=== PATIENT | female | born 1995 | race American Indian/Alaskan Native ===

== ENCOUNTER 2018-05-21 21:44 | Emergency (ER) | payer OTHER ==
--- NOTE | 2018-05-21 22:13 | Emergency Department Report ---
Chief Complaint: Earache Stated Complaint: RT EAR PRESSURE Time Seen by Provider: 05/21/18 22:09 - HPI History of Present Illness: This is a 23 y.o. female that presents with right ear pain x 3 days. Patient also reports accidentally swallowing tongue ring in route to ER. - ROS Review of Systems: right ear pain - Exam Vital Signs: Vital Signs 05/21/18 22:09 Temperature 98.3 F Pulse Rate 107 H Respiratory 16 Rate Blood Pressure 98/62 O2 Sat by Pulse 97 Oximetry MSE screening note: Focused history and physical exam performed. Due to findings the following was ordered: ACC for further evaluation. ED Disposition for MSE Condition: Stable
[2018-05-22] MEDS ORDERED: BENADRYL PO ONE (00:09)
[2018-05-22] MEDS ORDERED: AUGMENTIN 875 MG PO ONE (00:09)
[2018-05-22] MEDS ORDERED: IBUPROFEN PO ONE (00:09)
--- NOTE | 2018-05-22 00:22 | Emergency Department Report ---
ED ENT HPI - General Chief complaint: Earache Stated complaint: RT EAR PRESSURE Time Seen by Provider: 05/21/18 22:09 Source: patient Mode of arrival: Ambulatory Limitations: No Limitations - History of Present Illness Initial comments: This is a 23 y.o. female that presents with right ear pain x 3 days. Patient also reports accidentally swallowing tongue ring in route to ER. MD complaint: ear pain Onset/Timin -: days(s) Location: R ear Severity: moderate Severity scale (0 -10): 5 Quality: aching Consistency: constant Improves with: none Associated Symptoms: tinnitus - Related Data Previous Rx's Medication Instructions Recorded Last Taken Type Amoxicillin/K Clav Tab [Augmentin 1 tab PO BID 10 Days #20 tab 05/22/18 Unknown Rx 875 mg] Carbamide Peroxide [Ear Wax 5 drops OT BID 5 Days #12 ml 05/22/18 Unknown Rx Removal] Ibuprofen 800 mg PO TID PRN #30 tablet 05/22/18 Unknown Rx Allergies Allergy/AdvReac Type Severity Reaction Status Date / Time No Known Allergies Allergy Unverified 05/21/18 22:06 ED Dental HPI - General Chief complaint: Earache Stated complaint: RT EAR PRESSURE Time Seen by Provider: 05/21/18 22:09 Source: patient Mode of arrival: Ambulatory Limitations: No Limitations - Related Data Previous Rx's Medication Instructions Recorded Last Taken Type Amoxicillin/K Clav Tab [Augmentin 1 tab PO BID 10 Days #20 tab 05/22/18 Unknown Rx 875 mg] Carbamide Peroxide [Ear Wax 5 drops OT BID 5 Days #12 ml 05/22/18 Unknown Rx Removal] Ibuprofen 800 mg PO TID PRN #30 tablet 05/22/18 Unknown Rx Allergies Allergy/AdvReac Type Severity Reaction Status Date / Time No Known Allergies Allergy Unverified 05/21/18 22:06 ED Review of Systems ROS: Stated complaint: RT EAR PRESSURE Other details as noted in HPI Constitutional: denies: chills, fever Eyes: denies: eye pain, eye discharge, vision change ENT: denies: ear pain, throat pain Respiratory: denies: cough, shortness of breath, wheezing Cardiovascular: denies: chest pain, palpitations Endocrine: no symptoms reported Gastrointestinal: denies: abdominal pain, nausea, diarrhea Genitourinary: denies: urgency, dysuria, discharge Musculoskeletal: as per HPI Skin: denies: rash, lesions Neurological: denies: headache, weakness, paresthesias Psychiatric: denies: anxiety, depression Hematological/Lymphatic: denies: easy bleeding, easy bruising ED Past Medical Hx - Past Medical History Hx Asthma: Yes - Surgical History Additional Surgical History: 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, head, and jaw - Social History Smoking Status: Never Smoker Substance Use Type: None - Medications Home Medications: Home Medications Medication Instructions Recorded Confirmed Last Taken Type Amoxicillin/K Clav Tab [Augmentin 1 tab PO BID 10 Days #20 tab 05/22/18 Unknown Rx 875 mg] Carbamide Peroxide [Ear Wax 5 drops OT BID 5 Days #12 ml 05/22/18 Unknown Rx Removal] Ibuprofen 800 mg PO TID PRN #30 tablet 05/22/18 Unknown Rx ED Physical Exam - General Limitations: No Limitations General appearance: alert, in no apparent distress - Head Head exam: Present: atraumatic, normocephalic - Eye Eye exam: Present: normal appearance, PERRL, EOMI Pupils: Present: normal accommodation - ENT ENT exam: Present: mucous membranes moist - Expanded ENT Exam Expanded TM/Canal exam: Erythema: Right TM, Left TM, Cerumen Impaction: Right TM, Canal Tenderness: Right TM, Left TM Mouth exam: Absent: trismus Throat exam: Positive: normal inspection, other (uvula midline no swelling no stridor ) - Neck Neck exam: Present: normal inspection, full ROM. Absent: tenderness, meningi smus, lymphadenopathy, thyromegaly - Respiratory Respiratory exam: Present: normal lung sounds bilaterally. Absent: respiratory distress, wheezes, stridor, chest wall tenderness - Cardiovascular Cardiovascular Exam: Present: regular rate, normal rhythm, normal heart sounds. Absent: systolic murmur, diastolic murmur, rubs, gallop - GI/Abdominal GI/Abdominal exam: Present: soft, normal bowel sounds - Rectal Rectal exam: Present: deferred - Extremities Exam Extremities exam: Present: normal inspection, full ROM - Back Exam Back exam: Present: normal inspection, full ROM - Neurological Exam Neurological exam: Present: alert, oriented X3, CN II-XII intact, normal gait - Psychiatric Psychiatric exam: Present: normal affect, normal mood - Skin Skin exam: Present: warm, dry, intact, normal color. Absent: rash ED Course Vital Signs 03/23/19 22:09 Temperature 98.3 F Pulse Rate 107 H Respiratory 16 Rate Blood Pressure 98/62 O2 Sat by Pulse 97 Oximetry ED Medical Decision Making - Medical Decision Making this is aom bilat, plan: augmentin ibuprofe, debrox for right ear follow up with ent ni 2-3 days return to ed if symptoms worsen. pt verbalized agreement and understanding of discharge plan. Critical care attestation.: If time is entered above; I have spent that time in minutes in the direct care of this critically ill patient, excluding procedure time. ED Disposition Clinical Impression: AOM (acute otitis media) Qualifiers: Otitis media type: serous Laterality: bilateral Recurrence: non-recurrent Qualified Code(s): H65.03 - Acute serous otitis media, bilateral Disposition: TO HOME OR SELFCARE Is pt being admited?: No Does the pt Need Aspirin: No Condition: Stable Instructions: Otitis Media (ED) Prescriptions: Amoxicillin/K Clav Tab [Augmentin 875 mg] 1 tab PO BID 10 Days #20 tab Carbamide Peroxide [Ear Wax Removal] 5 drops OT BID 5 Days #12 ml Ibuprofen 800 mg PO TID PRN #30 tablet PRN Reason: pain fever Referrals: [facility]LLY [facility] MD BILL [Primary Care Provider] - 3-5 Days Forms: Work/School Release Form(ED) Time of Disposition: 00:28
[2018-05-22 01:22] VITALS: BP 102/60
== END 2018-05-22 01:26 | disposition home or self-care (01) ==
LOC: ED 21:44
DX: H65.03 Acute serous otitis media, bilateral (principal); J45.909 Unspecified asthma, uncomplicated
CPT/HCPCS: 99282

== ENCOUNTER 2018-05-27 21:38 | Emergency (ER) | payer SELFPAY ==
[2018-05-27 23:49] LABS: Bilirubin,Urine NEG (Negative); Blood,Urine NEG (Negative); Color,Urine Yellow (Yellow); Protein,Urine <15 mg/dL mg/dL (Negative); Urobilinogen,Urine < 2.0 mg/dL (<2.0)
[2018-05-27 23:50] LABS: HCG Qualitative,Urine Negative (Negative)
--- NOTE | 2018-05-28 01:37 | Emergency Department Report ---
<MOI GARRISON - Last Filed: 05/28/18 01:33> ED General Adult HPI - General Chief complaint: Earache Stated complaint: R EAR PAIN/ABD PAIN Source: patient Mode of arrival: Ambulatory Limitations: No Limitations - History of Present Illness Initial comments: 23 0 female presents to the emergency room for right ear pain going on for 1 week. Patient also reports sharp constant upper quadrant abdominal pain times one day. Patient reports that the pain is worse after eating better with lying in a position. She denies any nausea vomiting no fever no chills. Patient complains of right ear pain and aches constant she was placed on Augmentin and ibuprofen in ear wax removal on 05/22/2018. Patient reports she has not taken any medications today. Patient reports that the ibuprofen has helped with her ear but does not help with her stomach pains. Patient reports her last menstrual period was 05/07/2018. -: days(s) (1) Location: abdomen Severity scale (0 -10): 7 Quality: sharp Consistency: constant Improves with: rest ( position) Worsens with: eating Associated Symptoms: denies other symptoms Treatments Prior to Arrival: none - Related Data Previous Rx's Medication Instructions Recorded Last Taken Type Amoxicillin/K Clav Tab [Augmentin 1 tab PO BID 10 Days #20 tab 05/22/18 Unknown Rx 875 mg] Carbamide Peroxide [Ear Wax 5 drops OT BID 5 Days #12 ml 05/22/18 Unknown Rx Removal] Ibuprofen 800 mg PO TID PRN #30 tablet 05/22/18 Unknown Rx Omeprazole 40 mg PO DAILY #30 capsule. 05/28/18 Unknown Rx Allergies Allergy/AdvReac Type Severity Reaction Status Date / Time No Known Allergies Allergy Unverified 05/21/18 22:06 ED Review of Systems ENT: ear pain (right) Gastrointestinal: abdominal pain. 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 05/28/18 Unknown Rx ED Physical Exam - General Limitations: No Limitations General appearance: alert, in no apparent distress - Head Head exam: Present: atraumatic, normocephalic - Eye Eye exam: Present: EOMI - Expanded ENT Exam Expanded TM/Canal exam: Cerumen Impaction: Right TM - Neck Neck exam: Present: normal inspection - Cardiovascular Cardiovascular Exam: Present: tachycardia - GI/Abdominal GI/Abdominal exam: Present: soft, normal bowel sounds. Absent: distended, tenderness, guarding - Extremities Exam Extremities exam: Present: normal inspection - Back Exam Back exam: Present: normal inspection - Neurological Exam Neurological exam: Present: alert, oriented X3 - Psychiatric Psychiatric exam: Present: normal affect, normal mood - Skin Skin exam: Present: warm, dry, intact, normal color. Absent: rash ED Medical Decision Making - Medical Decision Making Patient has been evaluated by this provider fast track. CBC CMP abdominal CT with contrast has been ordered. Urinalysis and urine test completed which shows negativity. ED Disposition Clinical Impression: Otalgia of both ears Disposition: DC-01 TO HOME OR SELFCARE Condition: Stable Instructions: Earache (ED), Abdominal Pain (ED) Prescriptions: Omeprazole 40 mg PO DAILY #30 capsule. Referrals: FABIOLA GARCIA MD [Primary Care Provider] - 3-5 Days Forms: Work/School Release Form(ED) <MANUEL VIDES - Last Filed: 05/28/18 03:24> ED General Adult HPI - History of Present Illness Initial comments: omerprazole 40 mg po daily ED Review of Systems ROS: Stated complaint: R EAR PAIN/ABD PAIN Other details as noted in HPI ED Course Vital Signs 05/27/18 05/28/18 23:06 02:33 Temperature 98 F 98.2 F Pulse Rate 100 H 86 Respiratory 16 Rate Blood Pressure 102/62 Blood Pressure 98/54 [Right] O2 Sat by Pulse 97 99 Oximetry ED Medical Decision Making - Lab Data Result diagrams: 05/28/18 01:54 05/28/18 02:00 - Radiology Data Radiology results: report reviewed, image reviewed PROCEDURE: CT ABDOMEN PELVIS W CON TECHNIQUE: Computerized axial tomography of the abdomen and pelvis was performed after the IV injection of iodinated nonionic contrast. CT DOSE LENGTH PRODUCT: 560.5 mGycm HISTORY: abd pain upper Quadrant that radiates to back COMPARISONS: None . FINDINGS: Visualized lower thorax: No significant abnormality. Liver: Normal size and attenuation. Spleen: Normal size and attenuation. Gallbladder and biliary system: Normal. Pancreas: Normal. Adrenals: Normal. Kidneys: Normal. GI tract: Normal . Lymph nodes and mesentery: Normal. Vasculature: Normal.. Bladder: Normal. Reproductive organs: Normal. Peritoneum: No free fluid. Musculoskeletal structures: No significant abnormality. Other: None . IMPRESSION: Normal examination of the abdomen and pelvis . This document is electronically signed by Christine Rizzo DO., May 28 2018 02:59:47 AM ET Transcribed By: [facility] Dictated By: CHRISTINE RIZZO MD Electronically Authenticated By: CHRISTINE RIZZO MD Signed Date/Time: 05/28/18300 DD/ 9 TD/TT: 05/28/18249 - Medical Decision Making CT abdomen and pelvis are normal patient is asked to take Augmentin and ibuprofen at this as prescribed for pain and follow up with ENT as directed with Dr. Steward patient verbalizes agreement and understanding of discharge plan patient DC the home in stable condition at this time Critical care attestation.: If time is entered above; I have spent that time in minutes in the direct care of this critically ill patient, excluding procedure time. ED Disposition Is pt being admited?: No Does the pt Need Aspirin: No Time of Disposition: 03:21
[2018-05-28 02:24] LABS: Basophils % (Auto) 0.5 % (0.0-1.8); Eosinophils % (Auto) 0.5 % (0.0-4.3); Hematocrit 36.1 % (30.3-42.9); Hemoglobin 12.5 gm/dl (10.1-14.3); Lymphocytes # (Auto) 2.7 K/mm3 (1.2-5.4); Lymphocytes % (Auto) 45.8 % (13.4-35.0); Mean Corpuscular HGB Conc 35 % (30-34); Mean Corpuscular Hemoglobin 33 pg (28-32); Mean Corpuscular Volume 96 fl (79-97); Monocytes # (Auto) 0.6 K/mm3 (0.0-0.8); Monocytes % (Auto) 9.6 % (0.0-7.3); Platelet Count 173 K/mm3 (140-440); Red Blood Count 3.77 M/mm3 (3.65-5.03); Red Cell Distribution Width 14.6 % (13.2-15.2)
[2018-05-28 02:35] VITALS: BP 98/54
[2018-05-28 02:44] LABS: Alanine Aminotransferase 6 units/L (7-56); BUN/Creatinine Ratio 32; Blood Urea Nitrogen 19 mg/dL (7-17); Calcium 8.8 mg/dL (8.4-10.2); Hemolysis Index 4
--- NOTE | 2018-05-28 03:01 | Cat Scan Report ---
PROCEDURE: CT ABDOMEN PELVIS W CON TECHNIQUE: Computerized axial tomography of the abdomen and pelvis was performed after the IV inject ion of iodinated nonionic contrast. CT DOSE LENGTH PRODUCT: 560.5 mGycm HISTORY: abd pain upper Quadrant that radiates to back COMPARISONS: None . FINDINGS: Visualized lower thorax: No significant abnormality. Liver: Normal size and attenuation. Spleen: Normal size and attenuation. Gallbladder and biliary system: Normal. Pancreas: Normal. Adrenals: Normal. Kidneys: Normal. GI tract: Normal . Lymph nodes and mesentery: Normal. Vasculature: Normal.. Bladder: Normal. Reproductive organs: Normal. Peritoneum: No free fluid. Musculoskeletal structures: No significant abnormality. Other: None . IMPRESSION: Normal examination of the abdomen and pelvis . This document is electronically signed by Christine Rizzo DO., May 28 2018 02:59:47 AM ET
== END 2018-05-28 03:30 | disposition home or self-care (01) ==
LOC: ED 21:38
DX: H92.03 Otalgia, bilateral (principal); R10.9 Unspecified abdominal pain
CPT/HCPCS: 36415; 74177; 80053; 81001; 81025; 85025; 99284; Q9967

== ENCOUNTER 2018-08-14 00:54 | Emergency (ER) | payer SELFPAY ==
[2018-08-14] MEDS ORDERED: TORADOL IM ONE (06:42)
[2018-08-14] MEDS ORDERED: IBUPROFEN PO ONE ×2 (06:51→06:52)
--- NOTE | 2018-08-14 07:58 | Emergency Department Report ---
ED General Adult HPI - General Chief complaint: Headache Stated complaint: SEVERE HEADACHE Time Seen by Provider: 08/14/18 06:33 Source: patient Mode of arrival: Ambulatory Limitations: No Limitations - History of Present Illness Initial comments: 23-year-old female has a generalized headache which has been intermittent for more then a week. 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 She states that she has had many of these soft tissue tumors removed from other parts of her body. She has no diagnosis that she is aware of. She does not have a history of neurofibromatosis. She is not on any current medications. The history of her headache is never severe. She's had no neck stiffness no nausea no vomiting no focal neurological change, some photosensitivity but no photophobia. She refuses IM medicine now and just wants to take a pill. She has not been taking much [id number] for these headaches. She has no difficulty with her speech gait or mentation. -: week(s) Location: head Radiation: non-radiation Quality: dull Consistency: intermittent Improves with: none Worsens with: none Associated Symptoms: denies other symptoms Treatments Prior to Arrival: none - Related Data Previous Rx's Medication Instructions Recorded Last Taken Type Amoxicillin/K Clav Tab [Augmentin 1 tab PO BID 10 Days #20 tab 05/22/18 Unknown Rx 875 mg] Carbamide Peroxide [Ear Wax 5 drops OT BID 5 Days #12 ml 05/22/18 Unknown Rx Removal] Ibuprofen [Ibuprofen 800] 800 mg PO TID PRN #30 tablet 05/22/18 Unknown Rx Omeprazole 40 mg PO DAILY #30 capsule. 05/28/18 Unknown Rx Butalb/Acetaminophen/Caffeine 1 cap PO Q6HR PRN #10 cap 08/14/18 Unknown Rx [Fioricet 50-300-40 mg CAP] Allergies Allergy/AdvReac Type Severity Reaction Status Date / Time No Known Allergies Allergy Unverified 05/21/18 22:06 ED Review of Systems ROS: Stated complaint: SEVERE HEADACHE Other details as noted in HPI Constitutional: denies: chills, fever Eyes: denies: eye pain, eye discharge, vision change ENT: denies: ear pain, throat pain Respiratory: denies: cough, shortness of breath, wheezing Cardiovascular: denies: chest pain, palpitations Endocrine: no symptoms reported Gastrointestinal: denies: abdominal pain, nausea, diarrhea Genitourinary: denies: urgency, dysuria, discharge Musculoskeletal: denies: back pain, joint swelling, arthralgia Skin: denies: rash, lesions Neurological: denies: headache, weakness, paresthesias Psychiatric: denies: anxiety, depression Hematological/Lymphatic: denies: easy bleeding, easy bruising ED Past Medical Hx - Past Medical History Previous Medical History?: Yes Hx Asthma: Yes Additional medical history: Lipoma - Surgical History Past Surgical History?: Yes Additional Surgical History: 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, head, and jaw - Social History Smoking Status: Former Smoker Substance Use Type: None - Medications Home Medications: Home Medications Medication Instructions Recorded Confirmed Last Taken Type Amoxicillin/K Clav Tab [Augmentin 1 tab PO BID 10 Days #20 tab 05/22/18 Unknown Rx 875 mg] Carbamide Peroxide [Ear Wax 5 drops OT BID 5 Days #12 ml 05/22/18 Unknown Rx Removal] Ibuprofen [Ibuprofen 800] 800 mg PO TID PRN #30 tablet 05/22/18 Unknown Rx Omeprazole 40 mg PO DAILY #30 capsule.dr 05/28/18 Unknown Rx Butalb/Acetaminophen/Caffeine 1 cap PO Q6HR PRN #10 cap 08/14/18 Unknown Rx [Fioricet 50-300-40 mg CAP] ED Physical Exam - General Limitations: No Limitations General appearance: alert, in no apparent distress - Head Head exam: Present: atraumatic, normocephalic, other (soft tissue mass consistent with lipoma occiput) - Eye Eye exam: Present: normal appearance. Absent: scleral icterus - ENT ENT exam: Present: mucous membranes moist - Neck Neck exam: Present: normal inspection. Absent: tenderness, meningismus - Respiratory Respiratory exam: Present: normal lung sounds bilaterally. Absent: respiratory distress - Cardiovascular Cardiovascular Exam: Present: regular rate, normal rhythm. Absent: systolic murmur, diastolic murmur, rubs, gallop - GI/Abdominal GI/Abdominal exam: Present: soft, normal bowel sounds. Absent: distended, tenderness - Extremities Exam Extremities exam: Present: normal inspection - Back Exam Back exam: Present: normal inspection - Neurological Exam Neurological exam: Present: alert, oriented X3, CN II-XII intact, normal gait. Absent: motor sensory deficit - Psychiatric Psychiatric exam: Present: normal affect, normal mood - Skin Skin exam: Present: warm, dry, intact, normal color. Absent: rash ED Course Vital Signs 08/14/18 08/14/18 08/14/18 01:19 06:09 06:47 Temperature 98.2 F 98 F Pulse Rate 84 71 Respiratory 18 14 16 Rate Blood Pressure 103/70 Blood Pressure 116/52 [Left] O2 Sat by Pulse 99 100 Oximetry 08/14/18 08/14/18 08/14/18 06:51 07:00 07:30 Temperature Pulse Rate 64 56 L Respiratory 16 12 16 Rate Blood Pressure 110/69 116/52 Blood Pressure [Left] O2 Sat by Pulse 100 100 Oximetry ED Medical Decision Making - Radiology Data Radiology results: report reviewed (extracranial mass) Critical care attestation.: If time is entered above; I have spent that time in minutes in the direct care of this critically ill patient, excluding procedure time. ED Disposition Clinical Impression: Scalp mass Cephalalgia Qualifiers: Headache type: unspecified Headache chronicity pattern: acute headache Intractability: not intractable Qualified Code(s): R51 - Headache Disposition: DC-01 TO HOME OR SELFCARE Is pt being admited?: No Does the pt Need Aspirin: No Condition: Stable Instructions: Acute Headache (ED), Lipoma (ED) Additional Instructions: Follow up with PCP. Prescriptions: Butalb/Acetaminophen/Caffeine [Fioricet 50-300-40 mg CAP] 1 cap PO Q6HR PRN #10 cap PRN Reason: headache Referrals: PRIMARY CARE, [Primary Care Provider] - 3-5 Days [facility] [Provider Group] - 3-5 Days Time of Disposition: 09:06
--- NOTE | 2018-08-14 08:04 | Cat Scan Report ---
PROCEDURE: CT HEAD/BRAIN WO CON TECHNIQUE: Computerized tomography of the head was performed without contrast material. CT DOSE LENGTH PRODUCT: 1035.5 mGycm HISTORY: headache COMPARISONS: None . FINDINGS: The ventricles, cisterns and sulci are within normal limits. No intra parenchymal or extra-axial mas s, hemorrhage, or mass effect. Perry and white-matter differentiation is within normal limits. Normal spherical shape of the globes. Paranasal sinuses and mastoid air cells are clear. A round sof t tissue mass protrudes posteriorly from the left scalp vertex and measures approximately 3.8 x 3.4 c m on axial series 2, image 56. No skull or facial fracture visualized. IMPRESSION: No acute intracranial abnormality. Round soft tissue mass within the posterior superior scalp measures 3.8 x 3.4 cm. No findings of unde rlying skull destruction. Clinical correlation for chronicity is requested. Consider follow-up surgic al consultation is warranted. This document is electronically signed by Guanakito Ruvalcaba MD., August 14 2018 08:03:12 AM ET
[2018-08-14 09:26] VITALS: BP 134/75
== END 2018-08-14 09:25 | disposition home or self-care (01) ==
LOC: ED 00:54
DX: D17.0 Benign lipomatous neoplasm of skin and subcutaneous tissue of head, face and neck (principal); R51 Headache; J45.909 Unspecified asthma, uncomplicated; Z79.899 Other long term (current) drug therapy; Z98.890 Other specified postprocedural states; Z87.891 Personal history of nicotine dependence
CPT/HCPCS: 70450; 99283; J1885

== ENCOUNTER 2018-09-20 04:07 | Emergency (ER) | payer MEDICAID, OTHER ==
[2018-09-20] MEDS ORDERED: IBUPROFEN PO ONE (06:25)
[2018-09-20] MEDS ORDERED: DELTASONE PO ONE (06:25)
[2018-09-20] MEDS ORDERED: AUGMENTIN 875 MG PO ONE (06:25)
--- NOTE | 2018-09-20 06:49 | XRay Report ---
CHEST 1 VIEW 09/20/2018 4:42 AM INDICATION / CLINICAL INFORMATION: Chest Pain. COMPARISON: None available. FINDINGS: SUPPORT DEVICES: None. HEART / MEDIASTINUM: No significant abnormality. LUNGS / PLEURA: No significant pulmonary or pleural abnormality. No pneumothorax. ADDITIONAL FINDINGS: No significant additional findings. IMPRESSION: No acute findings. Signer Name: Jin Mcintyre MD Signed: 09/20/2018 6:44 AM Workstation Name: [id number]
--- NOTE | 2018-09-20 06:55 | Emergency Department Report ---
ED General Adult HPI - General Chief complaint: Chest Pain Stated complaint: SORE THROAT CHEST TIGHTNESS BAYRON VOMITING Source: patient Mode of arrival: Ambulatory Limitations: No Limitations - History of Present Illness Initial comments: pt is a 23 y/o aaf who presents for sore throat cough and chest wall pain x 2 days states noc fever no tmax recorded or noted by patient no fever in triage today pt pt states mild pain with swallowig there is no wheezing no sob no stridor no resp distress. Onset/Timin -: days(s) Location: chest Radiation: non-radiation Severity scale (0 -10): 4 Quality: burning Consistency: constant Improves with: none Worsens with: eating Associated Symptoms: confusion, chest pain (chest wall soreness ), cough, fever/chills. denies: headaches, loss of appetite, nausea/vomiting, rash, seizure, shortness of breath, syncope, weakness Treatments Prior to Arrival: none - Related Data Previous Rx's Medication Instructions Recorded Last Taken Type Amoxicillin/K Clav Tab [Augmentin 1 tab PO BID 10 Days #20 tab 05/22/18 Unknown Rx 875 mg] Carbamide Peroxide [Ear Wax 5 drops OT BID 5 Days #12 ml 05/22/18 Unknown Rx Removal] Ibuprofen [Ibuprofen 800] 800 mg PO TID PRN #30 tablet 05/22/18 Unknown Rx Omeprazole 40 mg PO DAILY #30 capsule. 05/28/18 Unknown Rx Butalb/Acetaminophen/Caffeine 1 cap PO Q6HR PRN #10 cap 08/14/18 Unknown Rx [Fioricet 50-300-40 mg CAP] Amoxicillin/Potassium Clav 1 each PO BID 10 Days #20 tablet 09/20/18 Unknown Rx [Augmentin 875-125 Tablet] Benzocaine/Mentho [Cepacol X 1 each MM Q2H PRN #3 packet 09/20/18 Unknown Rx Strength] Ibuprofen [Motrin 800 MG tab] 800 mg PO Q8HR PRN #30 tablet 09/20/18 Unknown Rx predniSONE [Deltasone] 40 mg PO QDAY 5 Days #10 tab 09/20/18 Unknown Rx Allergies Allergy/AdvReac Type Severity Reaction Status Date / Time No Known Allergies Allergy Verified 09/20/18 04:26 ED Review of Systems ROS: Stated complaint: SORE THROAT CHEST TIGHTNESS BAYRON VOMITING Other details as noted in HPI Constitutional: denies: chills, fever Eyes: denies: eye pain, eye discharge, vision change ENT: throat pain, congestion, other (sinus pain ). denies: ear pain, dental pain, hearing loss, epistaxis Respiratory: no symptoms reported, cough. denies: shortness of breath, wheezing Cardiovascular: denies: chest pain, palpitations Endocrine: no symptoms reported Gastrointestinal: hematochezia. denies: abdominal pain, nausea, diarrhea Genitourinary: denies: urgency, dysuria, frequency, hematuria, discharge, abnormal menses, dyspareunia Musculoskeletal: myalgia. denies: back pain, joint swelling, arthralgia Skin: denies: rash, lesions Neurological: denies: headache, weakness, paresthesias Psychiatric: denies: anxiety, depression Hematological/Lymphatic: denies: easy bleeding, easy bruising ED Past Medical Hx - Past Medical History Previous Medical History?: Yes Hx Asthma: Yes Additional medical history: Lipoma - Surgical History Past Surgical History?: Yes Additional Surgical History: 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, head, and jaw - Social History Smoking Status: Never Smoker Substance Use Type: None, Marijuana - Medications Home Medications: Home Medications Medication Instructions Recorded Confirmed Last Taken Type Amoxicillin/K Clav Tab [Augmentin 1 tab PO BID 10 Days #20 tab 05/22/18 Unknown Rx 875 mg] Carbamide Peroxide [Ear Wax 5 drops OT BID 5 Days #12 ml 05/22/18 Unknown Rx Removal] Ibuprofen [Ibuprofen 800] 800 mg PO TID PRN #30 tablet 05/22/18 Unknown Rx Omeprazole 40 mg PO DAILY #30 capsule. 05/28/18 Unknown Rx Butalb/Acetaminophen/Caffeine 1 cap PO Q6HR PRN #10 cap 08/14/18 Unknown Rx [Fioricet 50-300-40 mg CAP] Amoxicillin/Potassium Clav 1 each PO BID 10 Days #20 tablet 09/20/18 Unknown Rx [Augmentin 875-125 Tablet] Benzocaine/Mentho [Cepacol X 1 each MM Q2H PRN #3 packet 09/20/18 Unknown Rx Strength] Ibuprofen [Motrin 800 MG tab] 800 mg PO Q8HR PRN #30 tablet 09/20/18 Unknown Rx predniSONE [Deltasone] 40 mg PO QDAY 5 Days #10 tab 09/20/18 Unknown Rx ED Physical Exam - General Limitations: No Limitations General appearance: alert, in no apparent distress - Head Head exam: Present: atraumatic, normocephalic - Eye Eye exam: Present: normal appearance, PERRL, EOMI Pupils: Absent: normal accommodation, irregular - ENT ENT exam: Present: mucous membranes moist, TM's normal bilaterally, normal external ear exam - Expanded ENT Exam Expanded Ear exam: Present: normal external inspection Mouth exam: Present: tongue normal Teeth exam: Present: normal inspection Throat exam: Positive: tonsillar erythema, tonsillomegaly, tonsillar exudate, other (uvula midline no stridor moderate lesions mild exudate no stridor ). Negative: R peritonsillar mass, L peritonsillar mass - Neck Neck exam: Present: normal inspection, tenderness, full ROM, lymphadenopathy. Absent: meningismus, thyromegaly - Expanded Neck Exam Expanded Neck exam: Present: tenderness (mild tenderness with swallowing ). Absent: midline deformity, anterior neck swelling, thyroid mass, carotid bruit, tracheal deviation - Respiratory Respiratory exam: Present: normal lung sounds bilaterally. Absent: respiratory distress, wheezes, rhonchi, stridor, chest wall tenderness - Cardiovascular Cardiovascular Exam: Present: regular rate, normal rhythm, normal heart sounds. Absent: systolic murmur, diastolic murmur, rubs, gallop - GI/Abdominal GI/Abdominal exam: Present: soft, normal bowel sounds, pulsatile mass. Absent: distended, tenderness, guarding, rebound, rigid - Rectal Rectal exam: Present: deferred - External exam: Present: erythema Speculum exam: Present: normal speculum exam Bi-manual exam: Present: normal bi-manual exam - Extremities Exam Extremities exam: Present: normal inspection, full ROM, tenderness. Absent: normal capillary refill, calf tenderness - Back Exam Back exam: Present: normal inspection, full ROM, paraspinal tenderness, rash noted. Absent: tenderness, CVA tenderness (R), CVA tenderness (L), muscle spasm, vertebral tenderness - Neurological Exam Neurological exam: Present: alert, altered, oriented X3, CN II-XII intact, normal gait, abnormal gait, reflexes normal - Psychiatric Psychiatric exam: Present: normal affect, normal mood, depressed, anxious - Skin Skin exam: Present: warm, dry, intact, normal color. Absent: rash ED Course Vital Signs 09/20/18 04:21 Temperature 98.1 F Pulse Rate 91 H Respiratory 18 Rate Blood Pressure 123/71 O2 Sat by Pulse 100 Oximetry ED Medical Decision Making - EKG Data EKG shows normal: sinus rhythm, axis, intervals, QRS complexes, ST-T waves Rate: normal - EKG Data When compared to previous EKG there are: previous EKG unavailable Interpretation: normal EKG (ekg interp by ed attending: NSR no ST Elevated SD ) - Radiology Data Radiology results: report reviewed, image reviewed no infiltrate no opacities , plan tx for pharyngitis, with rx for cepachol, ibuprofen prednisone, and augmentin - Medical Decision Making plan tx for pharyngitis ibuprophen, prednisone, augmentin, cepachol pt will follow up with pcp in 2-3 days pt will be dc'd to home in stable condition in 2- 3 days pt verbalized agreement and understanding of discharge plan. Critical care attestation.: If time is entered above; I have spent that time in minutes in the direct care of this critically ill patient, excluding procedure time. ED Disposition Clinical Impression: Pharyngitis Qualifiers: Pharyngitis/tonsillitis etiology: unspecified etiology Qualified Code(s): J02.9 - Acute pharyngitis, unspecified Disposition: DC-01 TO HOME OR SELFCARE Is pt being admited?: No Does the pt Need Aspirin: No Condition: Stable Instructions: Pharyngitis (ED) Prescriptions: Amoxicillin/Potassium Clav [Augmentin 875-125 Tablet] 1 each PO BID 10 Days #20 tablet Benzocaine/Mentho [Cepacol X Strength] 1 each MM Q2H PRN #3 packet PRN Reason: throat pain predniSONE [Deltasone] 40 mg PO QDAY 5 Days #10 tab Ibuprofen [Motrin 800 MG tab] 800 mg PO Q8HR PRN #30 tablet PRN Reason: pain Referrals: MARCELA TILLMAN MD [Primary Care Provider] - 3-5 Days Forms: Work/School Release Form(ED) Time of Disposition: 07:10
[2018-09-20 07:29] VITALS: BP 121/74
== END 2018-09-20 07:28 | disposition home or self-care (01) ==
LOC: ED 04:07
DX: J02.9 Acute pharyngitis, unspecified (principal); R41.0 Disorientation, unspecified; J45.909 Unspecified asthma, uncomplicated; F12.10 Cannabis abuse, uncomplicated; Z79.899 Other long term (current) drug therapy
CPT/HCPCS: 71045; 93005; 93010; 99284; J7512

== ENCOUNTER 2019-04-27 06:14 | Emergency (ER) | payer SELFPAY ==
[2019-04-27 06:25] VITALS: BP 116/75
[2019-04-27 06:50] LABS: Bacteria,Urine 1+ /HPF (Negative); Bilirubin,Urine NEG (Negative); Blood,Urine NEG (Negative); Color,Urine Yellow (Yellow); Mucus,Urine FEW /HPF; Protein,Urine <15 mg/dL mg/dL (Negative); Urobilinogen,Urine < 2.0 mg/dL (<2.0)
[2019-04-27 06:53] LABS: Basophils % (Auto) 0.6 % (0.0-1.8); Eosinophils % (Auto) 0.6 % (0.0-4.3); Hematocrit 38.9 % (30.3-42.9); Hemoglobin 13.1 gm/dl (10.1-14.3); Lymphocytes # (Auto) 2.1 K/mm3 (1.2-5.4); Lymphocytes % (Auto) 41.2 % (13.4-35.0); Mean Corpuscular HGB Conc 34 % (30-34); Mean Corpuscular Volume 96 fl (79-97); Monocytes # (Auto) 0.4 K/mm3 (0.0-0.8); Monocytes % (Auto) 7.2 % (0.0-7.3); Platelet Count 208 K/mm3 (140-440); Red Blood Count 4.07 M/mm3 (3.65-5.03)
[2019-04-27 07:10] LABS: Alanine Aminotransferase 8 units/L (7-56); Albumin 4.4 g/dL (3.9-5); BUN/Creatinine Ratio 16; Blood Urea Nitrogen 11 mg/dL (7-17); Calcium 9.2 mg/dL (8.4-10.2); Hemolysis Index 2
--- NOTE | 2019-04-27 07:42 | Emergency Department Report ---
ED Abdominal Pain HPI - General Chief Complaint: Abdominal Pain Stated Complaint: SEVERE STOMACH PAIN Time Seen by Provider: 04/27/19 07:41 Source: patient Mode of arrival: Ambulatory Limitations: No Limitations - History of Present Illness Initial Comments: Patient is a 24-year-old -[place] female who comes to the emergency room complaining of abdominal pain. It is diffuse abdominal pain. Her last menstrual cycle was 3 days ago. Patient has no vaginal bleeding or discharge. She has no burning with urination. No back pain. No nausea vomiting or diarrhea. Last BM was normal yesterday. Patient was screened in triage by the nurses blood and urine was sent. They were all normal. This was discussed on initial exam with patient. On initial exam patient denies any pain. MD Complaint: abdominal pain -: Gradual Location: diffuse Migration to: no migration Severity: mild Consistency: intermittent Improves With: nothing Worsens With: nothing - Related Data LMP (females 10-50): other (3 d) Previous Rx's Medication Instructions Recorded Last Taken Type Amoxicillin/K Clav Tab [Augmentin 1 tab PO BID 10 Days #20 tab 05/22/18 Unknown Rx 875 mg] Carbamide Peroxide [Ear Wax 5 drops OT BID 5 Days #12 ml 05/22/18 Unknown Rx Removal] Ibuprofen [Ibuprofen 800] 800 mg PO TID PRN #30 tablet 05/22/18 Unknown Rx Omeprazole 40 mg PO DAILY #30 capsule. 05/28/18 Unknown Rx Butalb/Acetaminophen/Caffeine 1 cap PO Q6HR PRN #10 cap 08/14/18 Unknown Rx [Fioricet 50-300-40 mg CAP] Amoxicillin/Potassium Clav 1 each PO BID 10 Days #20 tablet 09/20/18 Unknown Rx [Augmentin 875-125 Tablet] Benzocaine/Mentho [Cepacol X 1 each MM Q2H PRN #3 packet 09/20/18 Unknown Rx Strength] Ibuprofen [Motrin 800 MG tab] 800 mg PO Q8HR PRN #30 tablet 09/20/18 Unknown Rx predniSONE [Deltasone] 40 mg PO QDAY 5 Days #10 tab 09/20/18 Unknown Rx Allergies Allergy/AdvReac Type Severity Reaction Status Date / Time No Known Allergies Allergy Verified 09/20/18 04:26 ED Review of Systems ROS: Stated complaint: SEVERE STOMACH PAIN Other details as noted in HPI Comment: All other systems reviewed and negative ED Past Medical Hx - Past Medical History Previous Medical History?: Yes Hx Asthma: Yes Additional medical history: Lipoma - Surgical History Past Surgical History?: Yes Additional Surgical History: 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, head, and jaw - Family History Family history: no significant - Social History Smoking Status: Former Smoker Substance Use Type: Marijuana - Medications Home Medications: Home Medications Medication Instructions Recorded Confirmed Last Taken Type Amoxicillin/K Clav Tab [Augmentin 1 tab PO BID 10 Days #20 tab 05/22/18 Unknown Rx 875 mg] Carbamide Peroxide [Ear Wax 5 drops OT BID 5 Days #12 ml 05/22/18 Unknown Rx Removal] Ibuprofen [Ibuprofen 800] 800 mg PO TID PRN #30 tablet 05/22/18 Unknown Rx Omeprazole 40 mg PO DAILY #30 capsule. 05/28/18 Unknown Rx Butalb/Acetaminophen/Caffeine 1 cap PO Q6HR PRN #10 cap 08/14/18 Unknown Rx [Fioricet 50-300-40 mg CAP] Amoxicillin/Potassium Clav 1 each PO BID 10 Days #20 tablet 09/20/18 Unknown Rx [Augmentin 875-125 Tablet] Benzocaine/Mentho [Cepacol X 1 each MM Q2H PRN #3 packet 09/20/18 Unknown Rx Strength] Ibuprofen [Motrin 800 MG tab] 800 mg PO Q8HR PRN #30 tablet 09/20/18 Unknown Rx predniSONE [Deltasone] 40 mg PO QDAY 5 Days #10 tab 09/20/18 Unknown Rx ED Physical Exam - General Limitations: No Limitations General appearance: alert, in no apparent distress - Head Head exam: Present: atraumatic, normocephalic - Eye Eye exam: Present: normal appearance - ENT ENT exam: Present: mucous membranes moist - Neck Neck exam: Present: normal inspection - Respiratory Respiratory exam: Present: normal lung sounds bilaterally. Absent: respiratory distress - Cardiovascular Cardiovascular Exam: Present: regular rate, normal rhythm. Absent: systolic murmur, diastolic murmur, rubs, gallop - GI/Abdominal GI/Abdominal exam: Present: soft, normal bowel sounds - Extremities Exam Extremities exam: Present: normal inspection - Back Exam Back exam: Present: normal inspection - Neurological Exam Neurological exam: Present: alert, oriented X3 - Psychiatric Psychiatric exam: Present: normal affect, normal mood - Skin Skin exam: Present: warm, dry, intact, normal color. Absent: rash ED Course Vital Signs 04/27/19 06:21 Temperature 98.3 F Pulse Rate 85 Respiratory 18 Rate Blood Pressure 116/75 O2 Sat by Pulse 100 Oximetry ED Medical Decision Making - Lab Data Result diagrams: 04/27/19 06:35 04/27/19 06:35 - Medical Decision Making Lab Results 04/27/19 04/27/19 04/27/19 Range/Units 06:34 06:35 06:35 WBC 5.2 (4.5-11.0) K/mm3 RBC 4.07 (3.65-5.03) M/mm3 Hgb 13.1 (10.1-14.3) gm/dl Hct 38.9 (30.3-42.9) % MCV 96 (79-97) fl MCH 32 (28-32) pg MCHC 34 (30-34) % RDW 14.0 (13.2-15.2) % Plt Count 208 (140-440) K/mm3 Lymph % (Auto) 41.2 H (13.4-35.0) % [place] % (Auto) 7.2 (0.0-7.3) % Eos % (Auto) 0.6 (0.0-4.3) % Baso % (Auto) 0.6 (0.0-1.8) % Lymph # 2.1 (1.2-5.4) K/mm3 [place] # 0.4 (0.0-0.8) K/mm3 Eos # 0.0 (0.0-0.4) K/mm3 Baso # 0.0 (0.0-0.1) K/mm3 Seg Neutrophils % 50.4 (40.0-70.0) % Seg Neutrophils # 2.6 (1.8-7.7) K/mm3 Sodium 143 (137-145) mmol/L Potassium 3.6 (3.6-5.0) mmol/L Chloride 105.2 (98-107) mmol/L Carbon Dioxide 27 (22-30) mmol/L Anion Gap 14 mmol/L BUN 11 (7-17) mg/dL Creatinine 0.7 (0.7-1.2) mg/dL Estimated GFR > 60 ml/min BUN/Creatinine Ratio 16 % Glucose 107 H (65-100) mg/dL Calcium 9.2 (8.4-10.2) mg/dL Total Bilirubin < 0.20 (0.1-1.2) mg/dL AST 12 (5-40) units/L ALT 8 (7-56) units/L Alkaline Phosphatase 70 (35-129) units/L Total Protein 6.5 (6.3-8.2) g/dL Albumin 4.4 (3.9-5) g/dL Albumin/Globulin Ratio 2.1 % HCG, Qual (Negative) Urine Color Yellow (Yellow) Urine Turbidity Clear (Clear) Urine pH 7.0 (5.0-7.0) Ur Specific [place] 1.019 (1.003-1.030) Urine Protein <15 mg/dl (Negative) mg/dL Urine Glucose (UA) Neg (Negative) mg/dL Urine Ketones Neg (Negative) mg/dL Urine Blood Neg (Negative) Urine Nitrite Neg (Negative) Urine Bilirubin Neg (Negative) Urine Urobilinogen < 2.0 (<2.0) mg/dL Ur Leukocyte Esterase Neg (Negative) Urine WBC (Auto) 1.0 (0.0-6.0) /HPF Urine RBC (Auto) 2.0 (0.0-6.0) /HPF U Epithel Cells (Auto) 3.0 (0-13.0) /HPF Urine Bacteria (Auto) 1+ (Negative) /HPF Urine Mucus Few /HPF 04/27/19 Range/Units 06:35 WBC (4.5-11.0) K/mm3 RBC (3.65-5.03) M/mm3 Hgb (10.1-14.3) gm/dl Hct (30.3-42.9) % MCV (79-97) fl MCH (28-32) pg MCHC (30-34) % RDW (13.2-15.2) % Plt Count (140-440) K/mm3 Lymph % (Auto) (13.4-35.0) % [place] % (Auto) (0.0-7.3) % Eos % (Auto) (0.0-4.3) % Baso % (Auto) (0.0-1.8) % Lymph # (1.2-5.4) K/mm3 [place] # (0.0-0.8) K/mm3 Eos # (0.0-0.4) K/mm3 Baso # (0.0-0.1) K/mm3 Seg Neutrophils % (40.0-70.0) % Seg Neutrophils # (1.8-7.7) K/mm3 Sodium (137-145) mmol/L Potassium (3.6-5.0) mmol/L Chloride (98-107) mmol/L Carbon Dioxide (22-30) mmol/L Anion Gap mmol/L BUN (7-17) mg/dL Creatinine (0.7-1.2) mg/dL Estimated GFR ml/min BUN/Creatinine Ratio % Glucose (65-100) mg/dL Calcium (8.4-10.2) mg/dL Total Bilirubin (0.1-1.2) mg/dL AST (5-40) units/L ALT (7-56) units/L Alkaline Phosphatase (35-129) units/L Total Protein (6.3-8.2) g/dL Albumin (3.9-5) g/dL Albumin/Globulin Ratio % HCG, Qual Negative (Negative) Urine Color (Yellow) Urine Turbidity (Clear) Urine pH (5.0-7.0) Ur Specific [place] (1.003-1.030) Urine Protein (Negative) mg/dL Urine Glucose (UA) (Negative) mg/dL Urine Ketones (Negative) mg/dL Urine Blood (Negative) Urine Nitrite (Negative) Urine Bilirubin (Negative) Urine Urobilinogen (<2.0) mg/dL Ur Leukocyte Esterase (Negative) Urine WBC (Auto) (0.0-6.0) /HPF Urine RBC (Auto) (0.0-6.0) /HPF U Epithel Cells (Auto) (0-13.0) /HPF Urine Bacteria (Auto) (Negative) /HPF Urine Mucus /HPF Vital Signs 04/27/19 06:21 Temperature 98.3 F Pulse Rate 85 Respiratory 18 Rate Blood Pressure 116/75 O2 Sat by Pulse 100 Oximetry Labs and urine results reviewed with patient. Patient being DC'd home with follow-up with PCP and [facility]. Her last Pap smear was numerous years ago after the of her child. Patient verbalizes understanding. She is a awake alert and oriented, no acute distress, ambulatory and taking p.o. She has her small child in the room with her. Critical care attestation.: If time is entered above; I have spent that time in minutes in the direct care of this critically ill patient, excluding procedure time. ED Disposition Clinical Impression: Abdominal pain Disposition: TO HOME OR SELFCARE Is pt being admited?: No Does the pt Need Aspirin: No Condition: Stable Instructions: Abdominal Pain (ED) Additional Instructions: stay well hydrated motrin or tylenol for pain see pcp and ob for follow up Referrals: FABIOLA GARCIA MD [Staff Physician] - 3-5 Days RAFAEL SALAZAR MD [Staff Physician] - 3-5 Days Time of Disposition: 07:41
== END 2019-04-27 08:01 | disposition home or self-care (01) ==
LOC: ED 06:14
DX: R10.84 Generalized abdominal pain (principal); J45.909 Unspecified asthma, uncomplicated; F12.10 Cannabis abuse, uncomplicated; Z87.891 Personal history of nicotine dependence; Z98.890 Other specified postprocedural states
CPT/HCPCS: 36415; 80053; 81001; 84703; 85025

== ENCOUNTER 2020-07-02 14:23 | Emergency (ER) | payer SELFPAY ==
[2020-07-02 14:49] VITALS: BP 115/61
[2020-07-02] MEDS ORDERED: ACETAMINOPHEN 500 MG TAB PO STA (15:18)
[2020-07-02] MEDS ORDERED: IBUPROFEN 800 MG TAB PO ONE (15:18)
[2020-07-02] MEDS ORDERED: ACETAMINOPHEN 500 MG TAB ONE (15:22)
[2020-07-02] MEDS ORDERED: IBUPROFEN 800 MG TAB ONE (15:23)
--- NOTE | 2020-07-02 15:31 | Event Note ---
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 Further treatment and workup at subsequent clinical providers discretion. Patient/guardian urged not to elope from the ED as their condition may be serious if not clinically assessed and m anaged. Initial orders include: Labs ACC evaluation
[2020-07-02 15:42] LABS: Hematocrit 38.5 % (30.3-42.9); Mean Corpuscular HGB Conc 34 % (30-34); Mean Corpuscular Volume 98 fl (79-97); Platelet Count 181 K/mm3 (140-440); Red Blood Count 3.95 M/mm3 (3.65-5.03); Red Cell Distribution Width 14.5 % (13.2-15.2)
--- NOTE | 2020-07-02 15:59 | Emergency Department Report ---
ED Back Pain/Injury HPI - General Chief Complaint: Back Pain/Injury Stated Complaint: BACK PAIN Time Seen by Provider: 07/02/20 15:15 Source: patient Limitations: No Limitations - History of Present Illness Initial Comments: 25-year-old female with no significant past medical history presents to the ER today with complaints of back pain. Patient states that her pain started this morning. Patient states that her pain was initially in her lower back but has since then migrated to now involve her thoracic back and around into her rib cage anteriorly and down her posterior thighs. She denies any injury but she does do lots of lifting at work. She states that the pain is worse with certain movements. She denies any pain with deep breath, chest pain, shortness of breath, abdominal pain. She denies any UTI symptoms. She denies any fever or chills. She denies similar symptoms in the past. She states that she did not take any thing for the pain today. MD Complaint: back pain -: This morning Similar Symptoms Previously: No - Related Data Previous Rx's Medication Instructions Recorded Last Taken Type Ibuprofen [Motrin] 600 mg PO Q8H PRN #30 tablet 07/02/20 Unknown Rx methOCARBAMOL [Robaxin TAB] 750 mg PO Q8H PRN #30 tablet 07/02/20 Unknown Rx Allergies Allergy/AdvReac Type Severity Reaction Status Date / Time No Known Allergies Allergy Verified 07/02/20 14:48 ED Review of Systems ROS: Stated complaint: BACK PAIN Other details as noted in HPI Comment: All other systems reviewed and negative Constitutional: denies: chills, fever Eyes: denies: eye pain, eye discharge, vision change ENT: denies: ear pain, throat pain Respiratory: denies: cough, orthopnea, shortness of breath, SOB with exertion, SOB at rest, stridor, wheezing Cardiovascular: denies: chest pain, palpitations Gastrointestinal: denies: abdominal pain, nausea, vomiting, diarrhea, constipation, hematemesis, hematochezia Genitourinary: denies: urgency, dysuria, frequency, hematuria, discharge, abnormal menses, dyspareunia Musculoskeletal: back pain. denies: joint swelling, arthralgia, myalgia Neurological: denies: headache, weakness, numbness, paresthesias, confusion, abnormal gait, vertigo Psychiatric: as per HPI. denies: anxiety, depression, auditory hallucinations, visual hallucinations, homicidal thoughts, suicidal thoughts Hematological/Lymphatic: denies: easy bleeding, easy bruising ED Past Medical Hx - Past Medical History Hx Asthma: Yes Additional medical history: Lipoma - Surgical History Additional Surgical History: 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, head, and jaw - Social History Smoking Status: Never Smoker Substance Use Type: None - Medications Home Medications: Home Medications Medication Instructions Recorded Confirmed Last Taken Type Ibuprofen [Motrin] 600 mg PO Q8H PRN #30 tablet 07/02/20 Unknown Rx methOCARBAMOL [Robaxin TAB] 750 mg PO Q8H PRN #30 tablet 07/02/20 Unknown Rx ED Physical Exam - General Limitations: No Limitations General appearance: alert, in no apparent distress - Head Head exam: Present: atraumatic, normocephalic, normal inspection - Eye Eye exam: Present: normal appearance, PERRL, EOMI Pupils: Present: normal accommodation - ENT ENT exam: Present: normal exam, mucous membranes moist - Neck Neck exam: Present: normal inspection, full ROM - Respiratory Respiratory exam: Absent: normal lung sounds bilaterally, wheezes, rales, rhonchi - Cardiovascular Cardiovascular Exam: Present: regular rate, normal rhythm, normal heart sounds - GI/Abdominal GI/Abdominal exam: Present: soft. Absent: distended, tenderness, guarding - Back Exam Back exam: Present: normal inspection, full ROM, paraspinal tenderness (She has diffuse left-sided paraspinal muscles along the thoracic and lumbar bilaterally with some mild spasms noted.), vertebral tenderness (Patient has tenderness to palpation diffusely along the lumbar spine, as well as diffusely from the lower to mid thoracic spine). Absent: CVA tenderness (R), CVA tenderness (L), rash noted - Neurological Exam Neurological exam: Present: alert, oriented X3, CN II-XII intact, normal gait. Absent: motor sensory deficit - Psychiatric Psychiatric exam: Present: normal affect, normal mood - Skin Skin exam: Present: intact ED Course Vital Signs 07/02/20 07/02/20 14:47 15:23 Temperature 98.5 F Pulse Rate 79 Respiratory 14 18 Rate Blood Pressure 115/61 O2 Sat by Pulse 100 Oximetry ED Medical Decision Making - Lab Data Result diagrams: 07/02/20 15:30 07/02/20 15:30 - Radiology Data Radiology results: report reviewed Patient: LESLIE CHURCH MR#: [id number] : 1995 Acct:[id number] Age/Sex: 25 / F ADM Date: 07/02/20 Loc: ED Attending Dr: Ordering Physician: LUL CHADWICK Date of Service: 07/02/20 Procedure(s): XR chest routine 2V Accession Number(s): [id number] cc: LUL CHADWICK Fluoro Time In Minutes: CHEST 2 VIEWS INDICATION / CLINICAL INFORMATION: upper back pain into chest. COMPARISON: 09/20/2018 FINDINGS: SUPPORT DEVICES: None. HEART / MEDIASTINUM: No significant abnormality. LUNGS / PLEURA: No significant pulmonary or pleural abnormality. No pneumothorax. ADDITIONAL FINDINGS: No significant additional findings. IMPRESSION: 1. No acute findings. Signer Name: Jesus Corey MD Signed: 07/02/2020 5:01 PM Workstation Name: [id number] Transcribed By: MARZENA Dictated By: Jesus Corey MD Electronically Authenticated By: Jesus Corey MD Signed Date/Time: 07/02/201700 DD/ 99 TD/TT: - Medical Decision Making Labs are unremarkable. Chest x-ray shows nothing acute. Patient currently resting in the room comfortably. She is actually sleeping, and easily arousable. She is not toxic or ill-appearing. She is appears well-hydrated. She is neurologically intact with a normal gait. She no fever, no bowel or bladder incontinence, and no saddle anesthesia. Her history, physical examination and diagnostic testing does not suggest the presence of acute spinal epidural abscess, acute epidural bleed, cauda equina syndrome, abdominal/thoracic aortic aneurysm, aortic dissection or other acute process requiring further testing, treatment or consultation in the emergency department. Suspect muscle strain at this time. Her vital signs are stable. Discussed lab/imaging results and suspected dx with patient. The patient condition is stable and appropriate for discharge. The patient will pursue further outpatient evaluation with the primary care physician. Critical care attestation.: If time is entered above; I have spent that time in minutes in the direct care of this critically ill patient, excluding procedure time. ED Disposition Clinical Impression: Back pain, Strain of back Disposition: DC-01 TO HOME OR SELFCARE Is pt being admited?: No Does the pt Need Aspirin: No Condition: Stable Instructions: Acute Back Pain, Adult, Muscle Strain, [id number] Additional Instructions: Take the motrin and robaxin as prescribed. Follow up with PCP in 1 week. Return to ED if symptoms changes or worsens in anyway. Prescriptions: Ibuprofen [Motrin] 600 mg PO Q8H PRN #30 tablet PRN Reason: Pain methOCARBAMOL [Robaxin TAB] 750 mg PO Q8H PRN #30 tablet PRN Reason: Spasms Referrals: FABIOLA GARCIA MD [Staff Physician] - 3-5 Days Forms: Work/School Release Form(ED) Time of Disposition: 17:45
[2020-07-02 16:36] LABS: Bilirubin,Urine NEG (Negative); Blood,Urine NEG (Negative); Color,Urine Straw (Yellow); Protein,Urine <15 mg/dL mg/dL (Negative); RBC,Urine < 1.0 /HPF (0.0-6.0); Urobilinogen,Urine < 2.0 mg/dL (<2.0)
[2020-07-02 16:38] LABS: HCG Qualitative,Urine Negative (Negative)
[2020-07-02 16:39] LABS: Albumin 4.6 g/dL (3.9-5); Blood Urea Nitrogen 10 mg/dL (7-17); Calcium 8.9 mg/dL (8.4-10.2); Hemolysis Index 1
[2020-07-02 16:50] LABS: Alanine Aminotransferase 8 units/L (7-56)
[2020-07-02 16:54] LABS: BUN/Creatinine Ratio 17
--- NOTE | 2020-07-02 17:06 | XRay Report ---
CHEST 2 VIEWS INDICATION / CLINICAL INFORMATION: upper back pain into chest. COMPARISON: 09/20/2018 FINDINGS: SUPPORT DEVICES: None. HEART / MEDIASTINUM: No significant abnormality. LUNGS / PLEURA: No significant pulmonary or pleural abnormality. No pneumothorax. ADDITIONAL FINDINGS: No significant additional findings. IMPRESSION: 1. No acute findings. Signer Name: Jesus Corey MD Signed: 07/02/2020 5:01 PM Workstation Name: [id number]
[2020-07-02 21:26] LABS: Total Cells Counted 100
[2020-07-02 21:27] LABS: Ovalocytes Rare; Platelet Estimate Consistent w Auto
== END 2020-07-02 18:16 | disposition home or self-care (01) ==
LOC: ED 14:23
DX: S39.012A Strain of muscle, fascia and tendon of lower back, initial encounter (principal); J45.909 Unspecified asthma, uncomplicated; Z79.899 Other long term (current) drug therapy; X58.XXXA Exposure to other specified factors, initial encounter; Y93.89 Activity, other specified; Y92.89 Other specified places as the place of occurrence of the external cause; Y99.8 Other external cause status
CPT/HCPCS: 36415; 71046; 80053; 81001; 81025; 83690; 85007; 85025

== ENCOUNTER 2021-02-11 16:51 | Emergency (ER) | payer SELFPAY ==
--- NOTE | 2021-02-11 19:09 | Emergency Department Report ---
- General Chief complaint: Headache Stated complaint: MASS ON HEAD Time Seen by Provider: 02/11/21 18:52 Source: EMS Mode of arrival: Ambulatory Limitations: No Limitations - History of Present Illness Initial comments: Patient is a 26-year-old female presents emergency room with complaints of a lump present to her scalp that has been present since she was approximately 8 years old. she reports that last week she bumped it against something while getting out of the car and states that it began to use increase in swelling and pain. He denies any fever, drainage, vomiting, chills. No past medical history. No allergies to medications. - Related Data Previous Rx's Medication Instructions Recorded Last Taken Type Ibuprofen [Motrin] 600 mg PO Q8H PRN #30 tablet 07/02/20 Unknown Rx methOCARBAMOL [Robaxin TAB] 750 mg PO Q8H PRN #30 tablet 07/02/20 Unknown Rx Allergies Allergy/AdvReac Type Severity Reaction Status Date / Time No Known Allergies Allergy Verified 07/02/20 14:48 Abscess Boil HPI - HPI Chief Complaint: Headache Stated Complaint: MASS ON HEAD Time Seen by Provider: 02/11/21 18:52 Home Medications: Previous Rx's Medication Instructions Recorded Last Taken Type Ibuprofen [Motrin] 600 mg PO Q8H PRN #30 tablet 07/02/20 Unknown Rx methOCARBAMOL [Robaxin TAB] 750 mg PO Q8H PRN #30 tablet 07/02/20 Unknown Rx Allergies/Adverse Reactions: Allergies Allergy/AdvReac Type Severity Reaction Status Date / Time No Known Allergies Allergy Verified 07/02/20 14:48 ED Review of Systems ROS: Stated complaint: MASS ON HEAD Other details as noted in HPI Comment: All other systems reviewed and negative ED Past Medical Hx - Past Medical History Hx Asthma: Yes Additional medical history: Lipoma - Surgical History Additional Surgical History: 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, head, and jaw - Social History Smoking Status: Never Smoker Substance Use Type: None - Medications Home Medications: Home Medications Medication Instructions Recorded Confirmed Last Taken Type Ibuprofen [Motrin] 600 mg PO Q8H PRN #30 tablet 07/02/20 Unknown Rx methOCARBAMOL [Robaxin TAB] 750 mg PO Q8H PRN #30 tablet 07/02/20 Unknown Rx ED Physical Exam - General Limitations: No Limitations General appearance: alert, in no apparent distress - Head Head exam: Present: other (4 cm cystic like structure present to the posterior scalp, no drainage, no erythema ) - ENT ENT exam: Present: mucous membranes moist - Neurological Exam Neurological exam: Present: alert, oriented X3 - Psychiatric Psychiatric exam: Present: normal affect, normal mood - Skin Skin exam: Present: warm, dry ED Course Vital Signs 02/11/21 02/11/21 02/11/21 17:20 20:21 20:23 Temperature 98.9 F 98.1 F 98.1 F Pulse Rate 79 76 79 Respiratory 16 16 16 Rate Blood Pressure 123/51 111/79 Blood Pressure 111/79 [Left] O2 Sat by Pulse 94 100 100 Oximetry ED Medical Decision Making - Medical Decision Making Patient is a 26-year-old female presents emergency room with complaints of a lump present to her scalp that has been present since she was approximately 8 years old. she reports that last week she bumped it against something while getting out of the car and states that it began to use increase in swelling and pain. He denies any fever, drainage, vomiting, chills. No past medical history. No allergies to medications. Vitals are normal. On exam:4 cm cystic like structure present to the posterior scalp, no drainage, no erythema. Discussed case with Dr. Kwame Rizzo, ER attending who evaluated patient at bedside and advised that she needs outpatient surgical follow-up, did not recommend I&D or antibiotic therapy at this time, she believes this is likely a cystic structure. Discussed all findings with patient and the importance of outpatient general surgery follow-up. Advised patient Please follow-up with a general surgeon. Return to emergency room for any new or worsening symptoms. Critical care attestation.: If time is entered above; I have spent that time in minutes in the direct care of this critically ill patient, excluding procedure time. ED Disposition Clinical Impression: Scalp cyst Disposition: 01 HOME / SELF CARE / HOMELESS Is pt being admited?: No Does the pt Need Aspirin: No Condition: Stable Additional Instructions: Please follow-up with a general surgeon. Return to emergency room for any new or worsening symptoms. Referrals: PRIMARY CARE, [Primary Care Provider] - 3-5 Days WALE SHARP DO [Staff Physician] - 3-5 Days Forms: Work/School Release Form(ED) Time of Disposition: 19:08 Print Language: SPANISH
[2021-02-11 20:22] VITALS: BP 111/79
== END 2021-02-11 20:25 | disposition home or self-care (01) ==
LOC: ED 16:51
DX: L72.12 Trichodermal cyst (principal); J45.909 Unspecified asthma, uncomplicated; Z79.899 Other long term (current) drug therapy
CPT/HCPCS: 99283

== ENCOUNTER 2021-03-18 08:06 | Day surgery (SDC) | payer OTHER ==
[2021-03-18] MEDS ORDERED: LACTATED RINGERS 1,000 ML ONE ×2 (08:55→12:27)
[2021-03-18] MEDS ORDERED: ONDANSETRON 4 MG/2 ML INJ IV PRN (10:10)
[2021-03-18] MEDS ORDERED: HYDROmorphone 1 MG/1 ML INJ IV PRN ×2 (10:10)
--- NOTE | 2021-03-18 10:10 | Anesthesia Day of Surgery ---
Anesthesia Day of Surgery - Day of Surgery Patient Examined: Yes Patient H&P Reviewed: Yes Patient is NPO: Yes
--- NOTE | 2021-03-18 10:11 | Anesthesia Consultation ---
Anesthesia Consult and Med Hx Date of service: 03/18/21 - Airway Anesthetic Teeth Evaluation: Good, Crowns ROM Head & Neck: Adequate Mental/Hyoid Distance: Adequate Mallampati Class: Class II Intubation Access Assessment: Good - Pre-Operative Health Status ASA Pre-Surgery Classification: ASA1 Proposed Anesthetic Plan: General - Pulmonary Hx Smoking: No Hx Asthma: Yes - Cardiovascular System Hx Heart Murmur: Yes - Central Nervous System Hx Psychiatric Problems: No - Hematic Hx Sickle Cell Disease: No - Other Systems Hx Alcohol Use: Yes (Wine daily) Hx Cancer: No Hx Obesity: No
[2021-03-18] MEDS ORDERED: LACTATED RINGERS 1,000 ML IV SCH (10:15)
[2021-03-18] MEDS ORDERED: BUPIVACAINE/PF (0.25%) 2.5 MG/ML 30 ML VIAL INFILTRATI ONE ×2 (10:24→11:49)
[2021-03-18] MEDS ORDERED: LIDOCAINE (1%) 10 MG/1 ML VIAL 20 ML MDV ONE (10:24)
[2021-03-18] MEDS ORDERED: ceFAZolin/Water 2 GM/20 ML 2 GM/20 ML SYRINGE IV ONE (10:44)
[2021-03-18] MEDS ORDERED: MIDAZOLAM 2 MG/2 ML INJ IV NR (11:00)
[2021-03-18] MEDS ORDERED: LIDOCAINE MPF (2%) 20 MG/1 ML VIAL 5 ML ONE (11:00)
[2021-03-18] MEDS ORDERED: KETAMINE/STERILE WATER 50 MG/ML SYRINGE ONE (11:00)
[2021-03-18] MEDS ORDERED: ceFAZolin/Water 2 GM/20 ML 2 GM/20 ML SYRINGE IV NR (11:00)
[2021-03-18] MEDS ORDERED: fentaNYL 100 MCG/2 ML INJ ONE (11:00)
[2021-03-18] MEDS ORDERED: propofoL 200 MG/20 ML VIAL IV ONE ×3 (11:00→12:02)
[2021-03-18] MEDS ORDERED: HYDROmorphone 1 MG/1 ML INJ ONE (11:27)
[2021-03-18] MEDS ORDERED: LIDOCAINE (1%) 10 MG/1 ML VIAL 20 ML MDV INFILTRATI ONE (11:50)
[2021-03-18] MEDS ORDERED: BACITRACIN ZINC OINT 28.4 GM TP ONE ×2 (12:12→12:14)
--- NOTE | 2021-03-18 12:35 | Short Stay Summary ---
Short Stay Documentation Date of service: 03/18/21 - History Principal diagnosis: cyst of back and scalp H&P: obtained from office - Allergies and Medications Current Medications: Allergies No Known Allergies Allergy (Verified 03/10/21 17:05) Home Medications Medication Instructions Recorded Confirmed Last Taken Type No Known Home Medications [No 03/10/21 03/10/21 Unknown History Reported Home Medications] Active Medications Hydromorphone HCl (Hydromorphone 1 Mg/1 Ml Inj) 0.25 mg IV Q10MIN PRN PRN Reason: Pain, Moderate (4-6) Stop: 03/18/21 20:00 Hydromorphone HCl (Hydromorphone 1 Mg/1 Ml Inj) 0.5 mg IV Q10MIN PRN PRN Reason: Pain , Severe (7-10) Stop: 03/18/21 20:00 Lactated Ringer's (Lactated Ringers) 1,000 mls @ 125 mls/hr IV DIRECT MYRIAM Last Admin: 03/18/21 08:50 Dose: 125 mls/hr Midazolam HCl (Midazolam 2 Mg/2 Ml Inj) 2 mg IV PREOP NR Stop: 03/18/21 23:59 Last Admin: 03/18/21 10:20 Dose: 2 mg Ondansetron HCl (Ondansetron 4 Mg/2 Ml Inj) 4 mg IV ONCE PRN PRN Reason: Nausea And Vomiting - Brief post op/procedure progress note Date of procedure: 03/18/21 Pre-op diagnosis: mass of back and scalp Post-op diagnosis: same Procedure: excision of scalp cyst, excision of back cyst Anesthesia: MAC, local Findings: 1. 1 cm cyst of back 2. 5 cm cyst of scalp with full thickness ulceration of skin Surgeon: WALE SHARP Estimated blood loss: minimal Pathology: list (cyst of back, cyst of scalp) Specimen disposition: to lab Condition: stable - Hospital course Hospital course: Pt observed in PACU and discharged to home in stable condition - Disposition Condition at discharge: Good Disposition: 01 HOME / SELF CARE / HOMELESS Short Stay Discharge Plan Activity: no restrictions Diet: regular Wound: open to air, per your surgeon's advice Additional Instructions: see printed instructions Follow up with: PRIMARY CARE,MD [Primary Care Provider] - 7 Days WALE SHARP DO [Staff Physician] - 14 Days Prescriptions: traMADoL [Ultram 50 MG tab] 50 mg PO Q6H PRN #20 tablet PRN Reason: Pain , Severe (7-10)
[2021-03-18 14:28] VITALS: BP 132/88
--- NOTE | 2021-03-18 15:29 | Operative Report ---
Operative Report Operative Report: Date of procedure: 03/18/21 Pre-op diagnosis: mass of back and scalp Post-op diagnosis: same Procedure: excision of scalp cyst, excision of back cyst Anesthesia: MAC, local Findings: 1. 1 cm cyst of back 2. 5 cm cyst of scalp with full thickness ulceration of skin Surgeon: WALE SHARP Estimated blood loss: minimal Pathology: list (cyst of back, cyst of scalp) Specimen disposition: to lab Condition: stable Hospital course: Pt observed in PACU and discharged to home in stable condition HPI and indication: 26-year-old female who presents to surgery clinic for evaluation of a large scalp cyst as well as a soft tissue mass of her right upper back. Patient states that the cyst has been present for many years and was growing in size. Most recently she had bumped her head in the area of the cyst and noticed redness and pain in the area. The patient has jitendra in her hair 1 of which was crossing over the area of the cyst. Upon examination the cyst measured approximately 5 to 6 cm with full-thickness ulceration of the skin where the braid was laying on top of the skin. She also had a 1 cm soft tissue mass, most likely cyst of her right upper back. It was recommended that the cyst be exc ised. All risk and benefits, alternatives to surgery were discussed with patient questions answered. Consent obtained. Procedure in detail: Patient was identified in the preoperative area, taken back to the operating room, placed on the operating room table in prone position with all bony prominences padded appropriately. After anesthesia was induced, the scalp and right upper back was prepped and draped in usual sterile fashion and a timeout was performed. I started with excision of the right upper back cyst. Local anesthetic was infiltrated to skin at the intended incision site. A small incision was made over the area of the cyst using a 15 blade. Dissection was carried down through subcutaneous tissues electrocautery until the cyst was encountered. The cyst was circumferentially dissected from the surrounding subcutaneous tissue using blunt dissection with a hemostat. Once the entire cyst was freed it was removed from the cavity. The cyst measured 1 cm. It was passed off the table as a specimen. The cavity was irrigated and hemostasis ensured. The wound was closed in layered fashion. The deep layer was approximated using a 3-0 Vicryl interrupted stitch. The skin was approximated using 4-0 Monocryl subcuticular interrupted stitches and skin glue. I then turned my attention to the scalp mass. Local anesthetic was infiltrated to the skin at the intended incision site. An elliptical incision was made around the ulcerated skin using a 15 blade. Using sharp dissection with an iris scissor the ulcerated skin along with the cyst was dissected free from the s urrounding tissue. This was performed circumferentially until the posterior aspect of the cyst was encountered. This was dissected using electrocautery until the entire cyst was freed. The cyst was removed from the wound and measured approximately 5 cm. It was already ruptured due to the ulceration of the skin. There was semisolid white material in the cyst. The cyst wall was thickened. The wound was then irrigated and hemostasis very carefully ensured. Surgicel powder was sprayed onto the wound bed to further ensure hemostasis. The skin was then closed using interrupted 3-0 Prolene stitches. Excess skin was excised using a 10 blade. The wound was cleansed and dried. Bacitracin ointment was applied to the skin. This was covered with a 4 x 4 gauze and secured with a head wrap At the end of the case all sponge, instrument, sharp counts were correct x2. The patient was awoken from anesthesia, transferred to the stretcher and taken to the PACU in stable condition.
--- NOTE | 2021-03-18 16:06 | Post Anesthesia Evaluation ---
- Post Anesthesia Evaluation Patient Participated: Yes Airway Patent: Yes Stable Respiratory Function: Yes Nausea/Vomiting: No Temp > 96.8F: Yes Pain Manageable: Yes Adequeate Hydration: Yes Anesthesia Complications: No Block Receding Appropriately: Not Applicable Patient on Ventilator: No
== END 2021-03-18 08:07 | disposition home or self-care (01) ==
LOC: OR 08:06
PROVIDERS: ATTEND Surgery
DX: L72.11 Pilar cyst (principal); L72.0 Epidermal cyst; R22.0 Localized swelling, mass and lump, head; J45.909 Unspecified asthma, uncomplicated; Z79.899 Other long term (current) drug therapy; Z98.890 Other specified postprocedural states; Z20.822 Contact with and (suspected) exposure to COVID-19; Z72.89 Other problems related to lifestyle
CPT/HCPCS: 11401; 11426; 81025; 88304; J0690; J1170; J2250; J2704; J3010; J3490; J7120; U0003; 88307

== ENCOUNTER 2021-11-19 23:03 | Emergency (ER) | payer OTHER ==
[2021-11-20] MEDS ORDERED: CYCLOBENZAPRINE 10 MG TAB PO ONE (07:34)
[2021-11-20] MEDS ORDERED: KETOROLAC 10 MG TAB PO ONE (07:34)
[2021-11-20] MEDS ORDERED: ACETAMINOPHEN W/CODEINE 300-30 MG TAB PO ONE (07:34)
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
[2021-11-20 09:22] VITALS: BP 137/80
== END 2021-11-20 09:22 | disposition home or self-care (01) ==
LOC: ED 23:03
DX: M54.2 Cervicalgia (principal); M25.562 Pain in left knee; J45.909 Unspecified asthma, uncomplicated; V89.2XXA Person injured in unspecified motor-vehicle accident, traffic, initial encounter; Y93.89 Activity, other specified; Y92.89 Other specified places as the place of occurrence of the external cause; Y99.8 Other external cause status
CPT/HCPCS: 99283